=== PATIENT | female | born 1985 | race Caucasian/White ===

== ENCOUNTER 2017-01-13 22:18 | Emergency (ER) | payer MEDICAID ==
[~2017-01-13] VITALS: Ht 172.7 cm; Wt 90.7 kg
[~2017-01-13 22:18] MED LIST: AMOXICILLIN500 M2 PO; ANAPROX DS550 MG PO; ANUSOL-HC25 MG R; BACTRIM DS 8001 TA1 PO; CLARITIN10 MG PO; FLONASE0.05 MG/AC NS; HYDROCODONE BIT1 T11 PO; LIDEX 0.05% CRE15 GM T; MEDROL DOSEPAK4 MG PO; MIRALAX POWDER17 G1 PO; NAPROSYN500 MG PO; NKHM; PONSTEL250 MG PO; PYRIDIUM100 MG PO; ROBITUSSIN AC 110 ML PO; VOLTAREN50 M1 PO
== END 2017-01-14 00:33 | disposition home or self-care (01) ==
LOC: ED 22:18
DX: M25.461 Effusion, right knee (principal)

== ENCOUNTER 2017-02-10 21:32 | Emergency (ER) | payer MEDICAID ==
[~2017-02-10] VITALS: Ht 172.7 cm; Wt 90.7 kg
== END 2017-02-10 22:48 | disposition home or self-care (01) ==
LOC: ED 21:32
DX: J02.9 Acute pharyngitis, unspecified (principal)

== ENCOUNTER 2017-05-14 08:16 | Emergency (ER) | payer OTHER ==
[~2017-05-14] VITALS: Ht 172.7 cm; Wt 88.5 kg
[2017-05-14 08:51] LABS: BILIRUBIN NEGATIVE (NEGATIVE); BLOOD 3+ (NEGATIVE); CLARITY CLOUDY (CLEAR); COLOR YELLOW (YELLOW); GLUCOSE NEGATIVE (NEGATIVE); KETONE NEGATIVE (NEGATIVE); LEUKO ESTERASE 2+ (NEGATIVE); NITRITE POSITIVE (NEGATIVE); PH 5.5 (5.0-9.0); PROTEIN 3+ (NEGATIVE); SPECIFIC GRAVITY 1.025 (1.005-1.030)
[2017-05-14 09:03] LABS: URINE REFLEX COMMENT YES (NO); WBC TNTC wbc/hpf (0-5)
[2017-05-14 09:08] LABS: BASO % 0.3 % (0.0-1.0); EOS # 0.1 10*3/uL (0.0-0.4); EOS % 0.8 % (1.0-4.0); HEMATOCRIT 41.9 % (37.0-47.0); HEMOGLOBIN 14.1 g/dl (12.0-16.0); IG # 0.1 10*3/uL (0.0-0.1); LYMPH # 1.7 10*3/uL (1.3-4.4); LYMPH % 11.8 % (27.0-41.0); MEAN CELL VOLUME 86.4 fl (81.0-99.0); MEAN CORPUSCULAR HGB 29.1 pg (27.0-31.0); MEAN CORPUSCULAR HGB CONC 33.7 g/dl (33.0-37.0); MEAN PLATELET VOLUME 10.5 fl (9.6-12.3); MONO # 0.8 10*3/uL (0.1-1.0); MONO % 5.8 % (3.0-9.0); NEUT # 11.7 10*3/uL (2.3-7.9); PLATELET COUNT AUTOMATED 335 10*3/uL (130-400); RED BLOOD COUNT 4.85 10*6/uL (4.10-5.10); RED CELL DISTRI WIDTH 12.2 % (0-14.5); WHITE BLOOD COUNT 14.4 10*3/uL (4.8-10.8)
[2017-05-14 09:26] LABS: ALBUMIN 3.7 gm/dl (3.1-4.5); ALKALINE PHOSPHATASE 64 U/L (45-117); BILIRUBIN, TOTAL 0.8 mg/dl (0.2-1.0); BUN 12 mg/dl (7-24); C-REACTIVE PROTEIN 1.76 MG/DL (0-0.3); CARBON DIOXIDE 24 mmol/L (21-32); CHLORIDE 106 mmol/L (98-107); EST GLOM FILT AFRICAN AMERICAN > 60 ml/min; GLUCOSE 102 mg/dL (65-99); POTASSIUM 3.8 mmol/L (3.5-5.1); SGOT/AST 18 IU/L (3-35); SGPT/ALT 26 U/L (12-78); SODIUM 139 mmol/L (136-145); TOTAL PROTEIN 8.5 gm/dL (6.4-8.2)
[2017-05-14 09:28] LABS: TROPONIN I < 0.015 ng/ml (<0.045)
[2017-05-14] MEDS ORDERED: IBU800 MG PO (10:24)
== END 2017-05-14 10:45 | disposition home or self-care (01) ==
LOC: ED 08:16
PROVIDERS: Student in an Organized Health Care Education/Training Program
DX: N39.0 Urinary tract infection, site not specified (principal); R31.9 Hematuria, unspecified; M19.071 Primary osteoarthritis, right ankle and foot

== ENCOUNTER 2017-11-23 17:40 | Emergency (ER) | payer SELFPAY ==
[~2017-11-23] VITALS: Ht 172.7 cm; Wt 90.7 kg
[~2017-11-23 17:40] MED LIST changes: +IBU800 MG PO
== END 2017-11-23 18:23 | disposition home or self-care (01) ==
LOC: ED 17:40
DX: G56.02 Carpal tunnel syndrome, left upper limb (principal); G89.29 Other chronic pain; M25.532 Pain in left wrist

== ENCOUNTER 2019-01-29 16:26 | Inpatient (IN) | payer BC ==
[~2019-01-29] VITALS: Ht 172.7 cm; Wt 79.4 kg
--- NOTE | ~2019-01-29 | PR ---
[place], [place] PROGRESS NOTE NAME: CLARENCE NAVAS UNIT #: [id number] ROOM: 426 DOCTOR: NELLA QUINTERO MD BIRTHDATE: [birth year] DOS: 02/04/2019 INPATIENT PROGRESS NOTE SUBJECTIVE: The patient is doing well this morning. Right knee pain is significantly improved. OBJECTIVE: GENERAL: She is awake, alert and oriented to person, place and time. VITAL SIGNS: Stable. Current temperature is 100.2, pulse is 115. EXTREMITIES: I examined both the right and left knees. There is a small effusion in the right knee. Range of motion is from 5 degrees to 105 degrees. This is painless active and passive range of motion within this arc. No erythema. Dressing over the aspiration site is clean and dry. I examined the left knee. She has got about 95 degree range of motion without pain ranging from 5 degrees to 100 degrees. Within this arc of motion, there was no pain with active or passive range of motion. She can do a straight leg raise bilaterally with about 5-degree lag. LABORATORY DATA: I examined the aspiration results of the right knee. There are rare crystals seen consistent with uric acid crystals potentially suggesting crystalline arthropathy. Nucleated cell count in the aspiration is again noted at 5375. This is well below the threshold of infection. Cultures from the knee aspiration showed no bacterial growth to date. 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 She does not have a septic knee on the right, nor the left side. Both knees are moving well this morning as noted above in the physical exam. The right knee, which was the worst knee, aspiration is negative for infection. She may have crystalline arthropathy as noted by the crystalline findings. The patient informs that she is being transferred to [facility] for further management of her systemic illnesses. She has persistent fever. I did let the patient know that today is my last date at [facility]. Followup if needed, will be with Dr. Pretty Caraballo, my Orthopedic Surgery partner. The patient understands. She had the opportunity to ask me questions and understands and agrees with the treatment plan as I have outlined it. [place], [place] PROGRESS NOTE NAME: CLARENCE NAVAS UNIT #: [id number] ROOM: 426 DOCTOR: NELLA QUINTERO MD BIRTHDATE: [birth year] Nella Quintero MD CM:PNTRANS [id number] NELLA QUINTERO MD 02/04/19 1339 interface
--- NOTE | ~2019-01-29 | CON ---
[place], [place] REPORT OF CONSULTATION NAME: CLARENCE NAVAS [facility] #: [id number] UNIT #: [id number] ROOM: 426 DOCTOR: ROSELYN ROSAS MD BIRTHDATE: [birth year] DOS: 01/31/2019 ADDENDUM This is addendum to the consult note done by the nurse practitioner, Jasmin Stone on 01/31/2019. I agreed with the assessment and plan made by the nurse practitioner, Jasmin Stone on 01/31/2019. I reviewed the labs and imaging. We will wait for the pathology results to finalize. Thank you for your consult. Please call for any questions. Roselyn Rosas MD CM:CONSTR:REPORT OF CONSULTATION 1619 02/03/19 2303 interface
--- NOTE | ~2019-01-29 | CON ---
[place], [place] REPORT OF CONSULTATION NAME: CLARENCE NAVAS [facility] #: [id number] UNIT #: [id number] ROOM: 426 DOCTOR: NELLA QUINTERO MD BIRTHDATE: [birth year] DOS: 02/03/2019 INPATIENT CONSULT NOTE CHIEF COMPLAINT: Right knee pain. HISTORY OF PRESENT ILLNESS: This is a pleasant 33-year-old female with right knee pain. She has been admitted to the hospital since 01/29/2019. Orthopedic Surgery was just consulted today, few hours ago. She was admitted to the hospital with multiple complaints including diffuse abdominal pain with diarrhea and an unspecified dental infection. Regarding the right knee, pain has been developing over the last few days. She has had a history of prior effusions in the knee. No history of gout. She has had to have the right knee aspirated in the past before. The patient has had a fever during this admission. She was febrile to 100.6. It is very hard for her to walk due to the right knee pain. Current pain level in the knee is high, about 8-9 on a scale of 1-10 with 10 being the worst. No trauma that she can recall. She does describe some pain in the left knee as well, but it is much less. Pain in the left knee is about a 2-3 on a scale of 1-10 with 10 being the worst. No trauma to the left knee. PAST MEDICAL AND SURGICAL HISTORY: 1. Status post foot surgery. 2. Status post hand surgery. 3. Status post abdominal surgery, unspecified. 4. History of urinary tract infection. 5. Hemorrhoids. 6. Bronchitis. SOCIAL HISTORY: No illicit drug use. No tobacco use. She reports no alcohol use. ALLERGIES TO MEDICINE: None. REVIEW OF SYSTEMS: A 10-point review of systems is conducted and is negative except for pertinent positives listed in the history of present illness. PHYSICAL EXAMINATION: GENERAL: Her general appearance is well. She is oriented to person, place, and time. Mood euthymic. Affect appropriate. VITAL SIGNS: The patient has had fevers during this admission including 103 degrees Fahrenheit on 01/29, 102 degrees on 01/29. Current temperature is 98.6 this morning at 8:00 a.m. Pulse is 106. Blood pressure is 100/67. EXTREMITIES: I examined the right leg. All compartments in the thigh and lower legs are soft. Skin is intact about the right hip, right knee, right ankle. She has got a very large effusion in the right knee. Knee is warm to touch. She has got a lot of pain with active and passive range of motion of the knee. She can do a straight leg raise, but she has got lots of pain and the effusion gives her least a 10-degree lag. I examined the right ankle. 5/5 strength with resisted ankle dorsiflexion and [place], [place] REPORT OF CONSULTATION NAME: CLARENCE NAVAS UNIT #: [id number] ROOM: 426 DOCTOR: NELLA QUINTERO MD BIRTHDATE: [birth year] plantar flexion. I examined the left knee. She has got a small effusion in the left knee. She has got 100-degree arc range of motion in the left knee without pain. She has got some mild medial joint line tenderness on the left knee. She can do a straight leg raise on the left side with about a 3-degree lag. LABORATORY DATA: White count is 9.9. H and H is 8 and 27. Platelets 356. ESR is 97. C-reactive protein is 24.5. INR is 1.2. IMAGING: I reviewed x-rays of the right knee from 02/02 which show no acute fracture, but a moderate joint effusion. IMPRESSION: A 33-year-old female, right knee pain with concern for septic right knee joint. In the clinical setting of infection, which in her case included dental infection and possible other infection, and with fevers, and with elevated sed rate and CRP, and with a lot of pain in the right knee, and with a lot of pain with any motion of the right knee, and with inability to weightbear due to pain in the right knee, my chief concern is septic right knee joint. I explained to the patient that this means that she may have an infection in the right knee joint. The only way to be sure is to aspirate the right knee and send the fluid to the lab for cell count, with differential, Gram stain, aerobic and anaerobic culture, and crystals. There are risks with aspiration, which include worsening of the infection, reaccumulation of fluid, and need for knee surgery. She did sign consent for right knee aspiration at the bedside. A verbal time-out was performed confirming that this is the correct patient and that the right knee is the correct side. I then proceeded under sterile conditions via superolateral approach in sterile fashion and drained 90 mL of yellow cloudy fluid from the right knee. A sterile dressing was then applied. She tolerated the procedure well with no immediate complications. Labs sent to the fluid for stat cell count with differential, crystals, Gram stain, aerobic and anaerobic culture. The patient is aware that she might need surgery on the right knee. This would be irrigation and debridement of the right knee joint if the labs are worrisome for an infection. Potentially, the function of her knee may be compromised permanently. She may have permanent disability or permanent dysfunction from this. She may need multiple surgeries on the right knee including possible early total knee arthroplasty. She is aware of. I also informed her that I am here on a temporary basis helping Dr. Pretty Caraballo, who is the permanent orthopedic surgeon here in [place]. My last [place], [place] REPORT OF CONSULTATION NAME: CLARENCE NAVAS UNIT #: [id number] ROOM: 426 DOCTOR: NELLA QUINTERO MD BIRTHDATE: [birth year] date is tomorrow, 02/04, and I made sure the patient is aware of that. She had the opportunity to ask me questions and she understands and agrees with treatment plan as I have outlined it. At this point, we are awaiting the laboratory results to guide our decision making whether we did go to the operating room or not for a septic knee. Nella Quintero MD CM:CONSTR:REPORT OF CONSULTATION 1234 02/03/19 1415 interface
--- NOTE | ~2019-01-29 | EKG ---
[place], [place] ELECTROCARDIOGRAM REPORT NAME: CLARENCE NAVAS UNIT #: [id number] ROOM: 426 DOCTOR: NELL DRAFT REPORT BIRTHDATE: [birth year] [facility] Test Date: 2019-01-29 Test Time: 17:06:59 Pat Name: CLARENCE NAVAS Department: Room: 426 Gender: F Geospatial Information Technologist: Nan Rosas : 1985 Requested By: MORGAN GARCIA DNP Order Number: [id number] [place] MD: Dany Stewart Measurements Intervals [place] Rate: 131 P: 55 [place]: 133 QRS: 91 QRSD: 85 T: -26 QT: 268 QTc: 396 Interpretive Statements Sinus tachycardia Borderline right axis deviation Borderline T abnormalities, diffuse leads No previous ECG available for comparison Electronically Signed On 01-30-2019 11:06:36 PDT by Dany Stewart CM:EKGRPT:ELECTROCARDIOGRAM REPORT [id number] MORGAN CAMEJO DRAFT REPORT MORGAN GARCIA DNP
--- NOTE | ~2019-01-29 | PR ---
[place], [place] PROGRESS NOTE NAME: CLARENCE NAVAS UNIT #: [id number] ROOM: 426 DOCTOR: NELLA QUINTERO MD BIRTHDATE: [birth year] DOS: 02/03/2019 This documents a conversation with the patient regarding her fluid results from the aspiration. The nucleated cell count is 5375 with 79% neutrophils, 13% lymphocytes, 8% monocytes. Gram stain shows moderate white blood cells and no organisms. Crystals are pending. Cultures are of course pending. With this laboratory result, I do not recommend any surgical irrigation and debridement at this time. The threshold for an infection is 50,000 nucleated cells. Her nucleated cell count is 5375, so this is almost 10 x below the threshold for infection. Therefore, infection in the knee joint is very unlikely. Cultures of the right knee synovial fluid should be followed. Should they turn positive, then a surgical irrigation and debridement of the right knee would be indicated. My last day at [facility] is 02/04/2019. Dr. Pretty Caraballo will be able to follow this patient after my departure including office followup after discharge from this hospital visit. The patient had the opportunity to ask any questions and understands and agrees with plan as I have outlined it. Nella Quintero MD CM:PNTRANS [id number] NELLA QUINTERO MD 02/03/19 1640 interface
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
--- NOTE | ~2019-01-29 | ED ---
[place], [place] EMERGENCY DEPARTMENT REPORT NAME: CLARENCE NAVAS UNIT #: [id number] PT STATUS: DIS IN DOCTOR: PIA ALMENDAREZ,[facility] ROOM #: 426 DOS: 01/30/2019 HISTORY OF PRESENT ILLNESS: The patient has presented ____ with nausea, vomiting, abdominal pain, cramp, diarrhea, quite distressed. Stool studies including clostridium difficile has been negative. Ova and parasite has been negative. CBC differential, white blood cells 17, H and H of 10 and 31. HIV rapid antibodies were negative. CT scan of the abdomen and colon was done. Diffuse colitis, suspected. Monospot positive. PAST MEDICAL HISTORY: Associated with chronic pain, dermatitis, constipation, sinusitis, osteoarthritis, urinary tract infections, and hemorrhoids. PAST SURGICAL HISTORY: Abdominal surgery, details unknown. Podiatric surgery. SOCIAL HISTORY: Nonsmoker, nonalcohol consumer by history. FAMILY HISTORY: Noncontributory. ALLERGIES: No known medication. REVIEW OF SYSTEMS: HEENT: Denies double vision, blurred vision. RESPIRATORY: Admits some shortness of breath. CARDIOVASCULAR: Denies chest pain. DIGESTIVE SYSTEM: Nausea, vomiting, diarrhea, and abdominal pain. PHYSICAL EXAMINATION: VITAL SIGNS: Stable. HEENT: Mouth thrush. NECK: Supple, no thyromegaly. CHEST: Symmetric anatomy, equal expansion. No wheeze, no rhonchi. HEART: Normal sinus rhythm, no gallop, no murmur. ABDOMEN: Soft. No hepato-organomegaly. Bowel sounds present. EXTREMITIES: No cyanosis, no pedal edema. NEUROLOGIC: Alert. IMPRESSION: Thrush in the mouth. Monospot positivity, diarrhea, ruling out all variety of viruses enteric. Stool studies needed since ova and parasite negative and since clostridium difficile negative. PLAN AND DISCUSSION: We are going to also proceed with endoscopic evaluation. Upper and lower tract. Labs reviewed, records reviewed. Monospot positivity noticed. Workup in progress. CT scan of the abdomen seen. Colitis report has been noticed. [place], [place] EMERGENCY DEPARTMENT REPORT NAME: CLARENCE NAVAS UNIT #: [id number] PT STATUS: DIS IN DOCTOR: PIA ALMENDAREZ,[facility] ROOM #: 426 LORENA PALACIO MD CM:CHUT:EMERGENCY DEPARTMENT REPORT [id number]
--- NOTE | ~2019-01-29 | O ---
[place], [place] OPERATIVE NOTE NAME: CLARENCE NAVAS UNIT #: [id number] ROOM: 426 DOCTOR: LORENA PALACIO MD BIRTHDATE: [birth year] DOS: 01/30/2019 INDICATION FOR PROCEDURE: The patient has presented with chief complaint of nausea, diarrhea, vomiting, abdominal pain, and colitis. PROCEDURE: Today's procedure part of investigation is panendoscopy and colonoscopy. PREMEDICATION: Propofol. SCOPE: Olympus forward-viewing gastroscope Q10 video. REPORT: After putting the patient in left lateral position and application of lubricant to the scope, the scope was introduced. Thereafter, under direct visualization, advanced through the length of esophagus without difficulty. Gastric pouch was entered. Gastritis seen. Biopsies from antrum was obtained. Duodenal bulb, second and third part within normal limits. The patient extubated, tolerated the procedure well. IMPRESSION: Gastritis and hiatal hernia. PLAN AND DISCUSSION: I am going to organize and colonoscopy today. PROCEDURE #2 INDICATION FOR PROCEDURE: The patient has presented with diarrhea. CT scan with colitis. PROCEDURE: Today's procedure part of investigation is colonoscopy plus biopsies. PREMEDICATION: Propofol. SCOPE: Olympus forward-viewing colonoscope 10L video. REPORT: After putting the patient in left lateral position and application of lubricant to the scope, the scope was introduced under direct visualization, advanced through the length of colon without difficulty. IMPRESSION AND PLAN: Numerous deeply punctate ulceration particularly as we approached toward the cecum populating colon. Biopsies from margin of them was obtained. Photographic series of very deeply punctate ulcers were obtained. Concern was that these could be viral in origin. The patient extubated and tolerated the procedure well. IMPRESSION: Numerous punctate colonic ulcers, rule out viruses as etiology. PLAN AND DECISION: We have spoken to the pathologist for awareness of the evaluation of the tissue not only in formalin, also for viral studies. Other discussion, the patient needs to be addressed for thrush in her mouth with [place], [place] OPERATIVE NOTE NAME: CLARENCE NAVAS UNIT #: [id number] ROOM: 426 DOCTOR: LORENA PALACIO MD BIRTHDATE: [birth year] perhaps nystatin 5 mL swish and swallow and clinical reassessment. LORENA PALACIO MD CM:CHESTER:OPERATIVE NOTE [id number] LORENA PALACIO MD 01/31/19 0648 interface
--- NOTE | ~2019-01-29 | CON ---
[place], [place] REPORT OF CONSULTATION NAME: CLARENCE NAVAS UNIT #: [id number] ROOM: 426 DOCTOR: LORENA PALACIO MD BIRTHDATE: [birth year] DOS: 01/30/2019 HISTORY OF PRESENT ILLNESS: The patient has presented with nausea, vomiting, abdominal pain, cramp, diarrhea, quite distressed. Stool studies including clostridium difficile has been negative. Ova and parasite has been negative. CBC differential, white blood cells 17, H and H of 10 and 31. HIV rapid antibodies were negative. CT scan of the abdomen and colon was done. Diffuse colitis, suspected. Monospot positive. PAST MEDICAL HISTORY: Associated with chronic pain, dermatitis, constipation, sinusitis, osteoarthritis, urinary tract infections, and hemorrhoids. PAST SURGICAL HISTORY: Abdominal surgery, details unknown. Podiatric surgery. SOCIAL HISTORY: Nonsmoker, nonalcohol consumer by history. FAMILY HISTORY: Noncontributory. ALLERGIES: No known medication. REVIEW OF SYSTEMS: HEENT: Denies double vision, blurred vision. RESPIRATORY: Admits some shortness of breath. CARDIOVASCULAR: Denies chest pain. DIGESTIVE SYSTEM: Nausea, vomiting, diarrhea, and abdominal pain. PHYSICAL EXAMINATION: VITAL SIGNS: Stable. HEENT: Mouth thrush. NECK: Supple, no thyromegaly. CHEST: Symmetric anatomy, equal expansion. No wheeze, no rhonchi. HEART: Normal sinus rhythm, no gallop, no murmur. ABDOMEN: Soft. No hepato-organomegaly. Bowel sounds present. EXTREMITIES: No cyanosis, no pedal edema. NEUROLOGIC: Alert. IMPRESSION: Thrush in the mouth. Monospot positivity, diarrhea, ruling out all variety of viruses enteric. Stool studies needed since ova and parasite negative and since clostridium difficile negative. PLAN AND DISCUSSION: We are going to also proceed with endoscopic evaluation. Upper and lower tract. Labs reviewed, records reviewed. Monospot positivity noticed. Workup in progress. CT scan of the abdomen seen. Colitis report has been noticed. [place], [place] REPORT OF CONSULTATION NAME: CLARENCE NAVAS UNIT #: [id number] ROOM: 426 DOCTOR: LORENA PALACIO MD BIRTHDATE: [birth year] LORENA PALACIO MD CM:CONSTR:REPORT OF CONSULTATION 1708 02/18/19 0816 interface
[2019-01-29 16:31] VITALS: BP 109/71
[2019-01-29 17:10] LABS: BASO % 0.3 % (0.0-1.0); EOS # 0.1 10*3/uL (0.0-0.4); EOS % 0.6 % (1.0-4.0); HEMATOCRIT 32.7 % (37.0-47.0); HEMOGLOBIN 10.7 g/dl (12.0-16.0); LYMPH # 1.3 10*3/uL (1.3-4.4); LYMPH % 8.6 % (27.0-41.0); MEAN CELL VOLUME 84.3 fl (81.0-99.0); MEAN CORPUSCULAR HGB 27.6 pg (27.0-31.0); MEAN CORPUSCULAR HGB CONC 32.7 g/dl (33.0-37.0); MEAN PLATELET VOLUME 10.6 fl (9.6-12.3); MONO % 7.1 % (3.0-9.0); NEUT # 12.1 10*3/uL (2.3-7.9); NEUT % 82.2 % (47.0-73.0); PLATELET COUNT AUTOMATED 390 10*3/uL (130-400); RED BLOOD COUNT 3.88 10*6/uL (4.10-5.10); RED CELL DISTRI WIDTH 12.7 % (0-14.5); WHITE BLOOD COUNT 14.7 10*3/uL (4.8-10.8)
[2019-01-29 17:19] LABS: ACT PARTIAL THROMBO TIME 23.6 SECONDS (20.8-31.5); INTERNATIONAL NORM RATIO 1.2 (2.0-3.5)
[2019-01-29 17:28] LABS: ALBUMIN 2.3 gm/dl (3.1-4.5); ALKALINE PHOSPHATASE 72 U/L (45-117); BUN 4 mg/dl (7-24); CHLORIDE 99 mmol/L (98-107); CREATININE 0.75 mg/dL (0.55-1.02); LIPASE 73 U/L (73-393); POTASSIUM 3.2 mmol/L (3.5-5.1); SGOT/AST 20 IU/L (3-35); SGPT/ALT 22 U/L (12-78); SODIUM 134 mmol/L (136-145); TOTAL PROTEIN 7.8 gm/dL (6.4-8.2)
[2019-01-29 17:30] LABS: BETA-HCG, QUANT < 1.0 mIU/mL (1-3); TROPONIN I < 0.015 ng/ml (<0.045)
[2019-01-29 18:00] VITALS: BP 105/62
--- NOTE | 2019-01-29 20:00 | NUR ---
PATIENT AMBULATED TO THE BATHROOM AT THIS TIME WITH SIGNIFICANT OTHER AT HER SIDE. GAIT STEADY. RESPIRATIONS EASY, NON-LABORED ON ROOM AIR. NO DISTRESS NOTED. RN WILL CONTINUE TO MONITOR.
--- NOTE | 2019-01-29 20:15 | NUR ---
PER PATIENT HAD A BLOODY BOWEL MOVEMENT WHEN UP TO THE RESTROOM.
[2019-01-29 20:28] VITALS: BP 95/66
--- NOTE | 2019-01-29 20:54 | NUR ---
PATIENT REFUSING TO GET INTO GOWN AT THIS TIME.
[2019-01-29 21:00] VITALS: BP 89/51
--- NOTE | 2019-01-29 21:00 | NUR ---
A 33, admitted to , under the services of AMANDA Tavarez DO with a diagnosis of COLITIS, SEPSIS, ABD PAIN, UTI, CARPAL TUNNEL SYNDROME. Chief complaint is GASTROENTERITIS. Patient arrived via ambulatory from ER. Monitor applied. Initial assessment completed. Vital signs taken and recorded. AMANDA TAVAREZ DO notified of admission to the unit. Orders received. See assessment for past medical history, medications and allergies. Patient and/or family oriented to unit. [facility] visitation policy reviewed. Clothing/patient valuable form completed. SHUKRI SAXENA
--- NOTE | 2019-01-29 22:20 | NUR ---
INFECTIOUS DISEASE ANSWERING SERVICE AWARE OF CONSULT.
--- NOTE | 2019-01-29 22:21 | NUR ---
PATIENT REFUSING PICTURES, MEASUREMENTS, AND TREATMENT OF BUTTOCKS WOUNDS.
--- NOTE | 2019-01-29 22:21 | NUR ---
DR CHANDRA AWARE OF PATIENT HAVING NO HOME MEDICATIONS.
--- NOTE | 2019-01-29 22:42 | NUR ---
PATIENT EXPLAINED REASONING BEHIND HIV SCREEN. GIVEN INFORMATION SHEET, CONSENT SIGNED. PLACED IN CHART. SCHEDULED TO BE DRAWN WITH 0530 LABS.
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
[2019-01-29 23:53] LABS: MICROCYTOSIS SLIGHT; PLATELET SUFFICIENCY NORMAL (NORMAL); POLYCHROMASIA SLIGHT; TOTAL CELLS COUNTED 100 #CELLS
[2019-01-30] VITALS: BP 105/70
--- NOTE | 2019-01-30 00:11 | NUR ---
PATIENT RECEIVED MORPHINE FOR ABDOMINAL PAIN RATED 8/10.
[2019-01-30 00:45] LABS: BASO # 0.1 10*3/uL (0.0-0.1); BASO % 0.3 % (0.0-1.0); EOS # 0.1 10*3/uL (0.0-0.4); EOS % 0.7 % (1.0-4.0); HEMATOCRIT 29.6 % (37.0-47.0); HEMOGLOBIN 9.4 g/dl (12.0-16.0); LYMPH % 6.6 % (27.0-41.0); MEAN CELL VOLUME 85.8 fl (81.0-99.0); MEAN CORPUSCULAR HGB 27.2 pg (27.0-31.0); MEAN CORPUSCULAR HGB CONC 31.8 g/dl (33.0-37.0); MEAN PLATELET VOLUME 10.6 fl (9.6-12.3); MONO # 1.2 10*3/uL (0.1-1.0); MONO % 8.1 % (3.0-9.0); NEUT # 12.3 10*3/uL (2.3-7.9); NEUT % 83.4 % (47.0-73.0); PLATELET COUNT AUTOMATED 326 10*3/uL (130-400); RED BLOOD COUNT 3.45 10*6/uL (4.10-5.10); RED CELL DISTRI WIDTH 12.8 % (0-14.5); WHITE BLOOD COUNT 14.8 10*3/uL (4.8-10.8)
--- NOTE | 2019-01-30 01:00 | NUR ---
PATIENT STATES MORPHINE WAS EFFECTIVE TO HELP WITH ABDOMINAL PAIN.
--- NOTE | 2019-01-30 06:06 | NUR ---
PATIENT RECEIVED TYLENOL FOR FEVER AND MORPHINE FOR ABDOMINAL PAIN RATED 8/10. PATIENT ALSO HAD ANOTHER BLOODY DIARRHEA EPISODE.
[2019-01-30 06:40] LABS: BASO % 0.2 % (0.0-1.0); EOS % 0.3 % (1.0-4.0); HEMATOCRIT 28.2 % (37.0-47.0); LYMPH # 1.3 10*3/uL (1.3-4.4); LYMPH % 9.1 % (27.0-41.0); MEAN CELL VOLUME 84.4 fl (81.0-99.0); MEAN CORPUSCULAR HGB 26.9 pg (27.0-31.0); MEAN CORPUSCULAR HGB CONC 31.9 g/dl (33.0-37.0); MEAN PLATELET VOLUME 10.6 fl (9.6-12.3); MONO # 1.2 10*3/uL (0.1-1.0); MONO % 8.6 % (3.0-9.0); NEUT # 11.4 10*3/uL (2.3-7.9); NEUT % 80.8 % (47.0-73.0); PLATELET COUNT AUTOMATED 318 10*3/uL (130-400); RED BLOOD COUNT 3.34 10*6/uL (4.10-5.10); RED CELL DISTRI WIDTH 12.8 % (0-14.5); RETICULOCYTE % 1.37 % (0.50-2.50); WHITE BLOOD COUNT 14.1 10*3/uL (4.8-10.8)
--- NOTE | 2019-01-30 06:48 | NUR ---
CALLED DR PERALES TO MAKE HIM AWARE THAT THE PATIENT HAD EXPERIENCED ANOTHER WATERY, BLOODY DIARRHEA EPISODE. SUGGESTED A POSSIBLE JAHDI CONSULT, BUT DR PERALES FEELS THAT INFECTIOUS DISEASE IS ENOUGH AT THIS POINT IN TIME. [facility]WEST RESULTED LABS REPORTED TO DR PERALES AT THIS TIME. PATIENT IS STATING THAT MORPHINE WAS EFFECTIVE FOR HER ABDOMINAL PAIN, SITTING UP IN BED, NO S/S OF DISTRESS. CALL LIGHT WITHIN REACH.
[2019-01-30 07:01] LABS: BUN 3 mg/dl (7-24); CHLORIDE 106 mmol/L (98-107); CREATININE 0.62 mg/dL (0.55-1.02); IRON 11 ug/dL (50-170); PHOSPHOROUS 1.7 mg/dL (2.5-4.9); POTASSIUM 3.2 mmol/L (3.5-5.1); SODIUM 136 mmol/L (136-145); TOTAL IRON BINDING CAPACITY 128 ug/dl (250-450)
--- NOTE | 2019-01-30 08:06 | NUR ---
TOOK OVER CARE OF PT, IN TO SEE PT, MED STUDENT ASSESSING PT AT THIS TIME. PT C/O PAIN TO ABDOMEN AND MOUTH DUE TO THRUSH. RESPIRATIONS EASY AND UNLABORED ON ROOM AIR. PT GRIMACING. WILL MEDICATE PT. HOB ELEVATED, ALL SAFETY MEASURES IN PLACE. CALL LIGHT IN REACH.
[2019-01-30 08:11] LABS: BILIRUBIN NEGATIVE (NEGATIVE); BLOOD 3+ (NEGATIVE); CLARITY SL CLOUDY (CLEAR); COLOR YELLOW (YELLOW); GLUCOSE NEGATIVE (NEGATIVE); KETONE TRACE (NEGATIVE); LEUKO ESTERASE 1+ (NEGATIVE); NITRITE NEGATIVE (NEGATIVE); UROBILINOGEN 0.2 E.U./dl (0.2-1.0)
--- NOTE | 2019-01-30 08:40 | NUR ---
CLARENCE NAVAS [id number] Please refer to the physician's history and physical for past medical history, comorbid conditions, and allergies. Diagnosis: UTI CARPAL TUNNEL SYNDROME COLITIS FLANK PAIN Charly Score: 17,AT RISK WOUND DESCRIPTIONS: Location of the wound: right lateral aspect of buttock proximal Thickness: Full Size: 0.3cm x 0.5cm x 0.1cm Tunneling: none Undermining: none Sinus Tract: none Presence of Exudate: Serosanguineous Amount: Light Color: Yellow, red Odor: Medium Periwound Skin Appearance: Normal Wound edges: approximated Pain (associated with wound): tender to touch How does patient state this happened? pt stated she has been having diarrhea and bleeding for about 2 weeks now Location of the wound: right lateral aspect of buttock medial Thickness: Partial Size: 0.2cm x 0.2cm x 0.1cm Tunneling: none Undermining: none Sinus Tract: none Presence of Exudate: Serosanguineous Amount: Light Color: red Odor: Medium Periwound Skin Appearance: Normal Wound edges: approximated Pain (associated with wound): tender to touch How does patient state this happened? pt stated she has been having diarrhea and bleeding for about 2 weeks now Location of the wound: right lateral aspect of buttock distal Thickness: Full Size: 0.7cm x 1.7cm x 0.1cm Tunneling: none Undermining: none Sinus Tract: none Presence of Exudate: Serosanguineous Amount: Light Color: red, yellow Odor: Medium Periwound Skin Appearance: Normal Wound edges: approximated Pain (associated with wound): tender to touch How does patient state this happened? pt stated she has been having diarrhea and bleeding for about 2 weeks now Location of the wound: right medial aspect of buttock Thickness: Full Size: 0.5cm x 1.5cm x 0.1cm Tunneling: none Undermining: none Sinus Tract: none Presence of Exudate: Serosanguineous Amount: Light Color: red, yellow, brown Odor: Medium Periwound Skin Appearance: Normal Wound edges: approximated Pain (associated with wound): tender to touch How does patient state this happened? pt stated she has been having diarrhea and bleeding for about 2 weeks now Location of the wound: left medial aspect of buttock distal Thickness: Full Size: 0.6cm x 0.6cm x 0.2cm Tunneling: none Undermining: none Sinus Tract: none Presence of Exudate: Serosanguineous Amount: Light Color: red, yellow, brown Odor: Medium Periwound Skin Appearance: Normal Wound edges: approximated Pain (associated with wound): tender to touch How does patient state this happened? pt stated she has been having diarrhea and bleeding for about 2 weeks now Location of the wound: left medial aspect of buttock medial above distal Thickness: Partial Size: 0.2cm x 0.3cm x 0.1cm Tunneling: none Undermining: none Sinus Tract: none Presence of Exudate: Serosanguineous Amount: Light Color: red Odor: Medium Periwound Skin Appearance: Normal Wound edges: approximated Pain (associated with wound): tender to touch How does patient state this happened? pt stated she has been having diarrhea and bleeding for about 2 weeks now Location of the wound: left medial aspect of buttock medial above medial Thickness: Partial Size: 0.2cm x 0.4cm x 0.1cm Tunneling: none Undermining: none Sinus Tract: none Presence of Exudate: Serosanguineous Amount: Light Color: red Odor: Medium Periwound Skin Appearance: Normal Wound edges: approximated Pain (associated with wound): tender to touch How does patient state this happened? pt stated she has been having diarrhea and bleeding for about 2 weeks now Location of the wound: left medial aspect of buttock proximal above medial Thickness: Partial Size: 0.2cm x 0.2cm x 0.1cm Tunneling: none Undermining: none Sinus Tract: none Presence of Exudate: Serosanguineous Amount: Light Color: red Odor: Medium Periwound Skin Appearance: Normal Wound edges: approximated Pain (associated with wound): tender to touch How does patient state this happened? pt stated she has been having diarrhea and bleeding for about 2 weeks now Location of the wound: left lateral aspect of buttock Thickness: Full Size: 0.5cm x 0.5cm x 0.1cm Tunneling: none Undermining: none Sinus Tract: none Presence of Exudate: Serosanguineous Amount: Light Color: red, yellow Odor: Medium Periwound Skin Appearance: Normal Wound edges: approximated Pain (associated with wound): tender to touch How does patient state this happened? pt stated she has been having diarrhea and bleeding for about 2 weeks now Location of the wound: distal aspect of coccyx Thickness: Full Size: 0.6cm x 0.4cm x 0.2cm Tunneling: none Undermining: none Sinus Tract: none Presence of Exudate: Serosanguineous Amount: Light Color: red, yellow Odor: Medium Periwound Skin Appearance: Normal Wound edges: approximated Pain (associated with wound): tender to touch How does patient state this happened? pt stated she has been having diarrhea and bleeding for about 2 weeks now Location of the wound: medial aspect of coccyx Thickness: Full Size: 0.4cm x 0.2cm x 0.2cm Tunneling: none Undermining: none Sinus Tract: none Presence of Exudate: Serosanguineous Amount: Light Color: red, yellow Odor: Medium Periwound Skin Appearance: Normal Wound edges: approximated Pain (associated with wound): tender to touch How does patient state this happened? pt stated she has been having diarrhea and bleeding for about 2 weeks now Location of the wound: proximal aspect of coccyx Thickness: Partial Size: 0.3cm x 0.2cm x 0.1cm Tunneling: none Undermining: none Sinus Tract: none Presence of Exudate: Serosanguineous Amount: Light Color: red, Odor: Medium Periwound Skin Appearance: Normal Wound edges: approximated Pain (associated with wound): tender to touch How does patient state this happened? pt stated she has been having diarrhea and bleeding for about 2 weeks now Surface the patient is resting on: Isoflex SKIN PREVENTION RECOMMENDATION: 1. Pressure redistribution support surface as appropriate 2. Elevate heels 3. Remove boots/TEDS every shift and reapply 4. Head of bed 30 degrees as tolerated 5. Assess nutrition and hydration 6. Manage moisture 7. Avoid the use of containment devices while in bed 8. Use absorptive products on surfaces limit layers of linens on bed 9. Turn and reposition every 1-2 hours in bed and every 1 hour in chair as tolerated 10. Weight shifts every 15 minutes while up in chair 11. Offloading with pillows or device to keep heels elevated off bed 12. Monitor skin at least every shift 13. Inspect under medical devices twice a day WOUND TREATMENT RECOMMENDATIONS: Wheelchair cushion when oob. Partial and Full thickness guidelines: Cleanse all areas to left buttock, right buttock, and coccyx with nss and apply sureprep around the wound therahoney to wound bed and cover with dsd daily and prn for soiling. Keep intact with mesh undergarments. Consult surgery for possible debridement of full thickness areas located to left buttocks, right buttocks, and coccyx.
--- NOTE | 2019-01-30 09:00 | NUR ---
Edging Catcher in to talk to patient. Patient states lives at home with . There are no steps in the home. Physician: none [facility]acy: [facility] health services: none Patient's level of ADLs: MINIMAL ASSIST Patient has working utilities: all working DME: none Follow-up physician's appointment after d/c: will be made by hospitalist nurse director upon discharge Does patient want to access PORTAL?: no Discharge plan discussed with patient, patient lives at home with , she states she sometimes doesn't get around very well, no cane or walker, discussed with her a discharge plan and she stated she would be going home, also discussed her not being able to get around well at time, discussed with her needing a walker or cane and patient declined any equipement at this time, case management will follow. MINOO MCCOY
--- NOTE | 2019-01-30 09:24 | NUR ---
Dr. Kinsey notified of wound care recommendations.
[2019-01-30 09:37] LABS: FERRITIN 544.8 ng/mL (10.0-291.0)
[2019-01-30 09:54] LABS: BACTERIA 3+
[2019-01-30 09:55] LABS: RBC 31-40 rbc/hpf (0-2); WBC TNTC wbc/hpf (0-5)
--- NOTE | 2019-01-30 11:16 | NUR ---
CONSULT CALLED TO DR PALACIO, NEW ORDERS RECEIVED FOR TAP WATER ENEMA AT NOON, EGD/COLO TODAY, AND NPO NOW.
[2019-01-30 12:00] VITALS: BP 103/58
[2019-01-30 14:11] LABS: HEMATOCRIT 31.7 % (37.0-47.0); HEMOGLOBIN 10.1 g/dl (12.0-16.0); MEAN CELL VOLUME 83.6 fl (81.0-99.0); MEAN CORPUSCULAR HGB 26.6 pg (27.0-31.0); MEAN CORPUSCULAR HGB CONC 31.9 g/dl (33.0-37.0); MEAN PLATELET VOLUME 10.9 fl (9.6-12.3); PLATELET COUNT AUTOMATED 327 10*3/uL (130-400); RED BLOOD COUNT 3.79 10*6/uL (4.10-5.10); RED CELL DISTRI WIDTH 12.9 % (0-14.5); WHITE BLOOD COUNT 17.5 10*3/uL (4.8-10.8)
[2019-01-30 14:35] LABS: BASOPHILS 1 % (0-1); BURR CELLS FEW; PLATELET SUFFICIENCY NORMAL (NORMAL); TOTAL CELLS COUNTED 100 #CELLS
[2019-01-30 17:30] VITALS: BP 115/73
--- NOTE | 2019-01-30 18:14 | NUR ---
PT GIVEN TYLENOL 650 MG PO AT THIS TIME FOR FEVER OF 102. WILL MONITOR FOR EFFECTIVENESS. CALL LIGHT IN REACH.
--- NOTE | 2019-01-30 18:55 | NUR ---
PT REFUSING WOUND CARE TO BUTTOCKS AT THIS TIME.
[2019-01-30 20:00] VITALS: BP 112/63
[2019-01-31] VITALS: BP 107/70
--- NOTE | 2019-01-31 05:58 | NUR ---
PATIENT COMPLAINING OF ORAL PAIN CAUSED BY THE ORAL THRUSH. CALLED DR PERALES TO REQUEST ORAL LIDOCAINE. NEW ORDER RECEIVED ONE TIME. LIDOCAINE GIVEN TO PATIENT.
[2019-01-31 06:14] LABS: BASO % 0.3 % (0.0-1.0); EOS # 0.1 10*3/uL (0.0-0.4); HEMATOCRIT 25.4 % (37.0-47.0); LYMPH # 1.1 10*3/uL (1.3-4.4); MEAN CELL VOLUME 84.9 fl (81.0-99.0); MEAN CORPUSCULAR HGB 26.8 pg (27.0-31.0); MEAN CORPUSCULAR HGB CONC 31.5 g/dl (33.0-37.0); MEAN PLATELET VOLUME 10.7 fl (9.6-12.3); MONO % 8.5 % (3.0-9.0); NEUT # 9.6 10*3/uL (2.3-7.9); NEUT % 80.4 % (47.0-73.0); PLATELET COUNT AUTOMATED 286 10*3/uL (130-400); RED BLOOD COUNT 2.99 10*6/uL (4.10-5.10); RED CELL DISTRI WIDTH 13.2 % (0-14.5); WHITE BLOOD COUNT 11.9 10*3/uL (4.8-10.8)
[2019-01-31 06:23] LABS: BUN 2 mg/dl (7-24); CHLORIDE 106 mmol/L (98-107); POTASSIUM 3.4 mmol/L (3.5-5.1); SODIUM 138 mmol/L (136-145)
[2019-01-31 08:00] VITALS: BP 112/80; BP 136/66
[2019-01-31 12:00] VITALS: BP 111/72
--- NOTE | 2019-01-31 13:20 | NUR ---
PATIENT REQUESTING TO TAKE A SHOWER- SPOKE WITH DR ALFORD, PATIENT TO TAKE BED BATH AT THIS TIME.
--- NOTE | 2019-01-31 13:50 | NUR ---
PATIENT REQUESTING PAIN MEDICATION FOR ABDOMINAL PAIN RATED 7/10 ON 0/10 SCALE AT THIS TIME. MORPHINE ADMINISTERED PRESCRIBED. WILL MONITOR FOR EFFECTIVENESS.
--- NOTE | 2019-01-31 14:50 | NUR ---
PATIENT STATES THAT ABDOMINAL PAIN 4/10 AFTER ADMINISTRATION OF MORPHINE. WILL CONTINUE TO MONITOR.
[2019-01-31 16:00] VITALS: BP 102/66
--- NOTE | 2019-01-31 17:58 | NUR ---
RECEIVED CALL FROM BARREL MAKER, PT HR 148. PT UP USING BSC. ASKING FOR PAIN MEDICATION.
--- NOTE | 2019-01-31 18:12 | NUR ---
PATIENT REQUESTING PAIN MEDICATION FOR ABDOMINAL PAIN RATED 8/10 ON 0/10 SCALE. MORPHINE ADMINISTERED PRESCRIBED. WILL MONITOR FOR EFFECTIVENESS.
--- NOTE | 2019-01-31 19:12 | NUR ---
PATIENT STATES THAT MORPHINE HELPED ABDOMINAL PAIN, RATES IT 5/10 AT THIS TIME. WILL CONTINUE TO MONITOR.
[2019-01-31 20:00] VITALS: BP 93/59
[2019-02-01] VITALS: BP 102/67
--- NOTE | 2019-02-01 00:23 | NUR ---
REFUSING WOUND CARE DRESSINGS AT THIS TIME.
--- NOTE | 2019-02-01 00:52 | NUR ---
PATIENT RECEIVED TYLENOL FOR TEMP OF 102.
--- NOTE | 2019-02-01 02:09 | NUR ---
PATIENT RECEIVED MORPHINE FOR PAIN IN KNEES AND ABDOMEN. RATES PAIN 9/10 WITH MOVEMENT.
--- NOTE | 2019-02-01 03:00 | NUR ---
24 HR chart check completed.
--- NOTE | 2019-02-01 05:08 | NUR ---
PATIENT ALLOWED THIS NURSE TO PLACE THE DRESSINGS ON BUTTOCKS WOUNDS PER DR ORDER. ALSO WASHED AND COMBED PATIENT'S HAIR TO REMOVE KNOTS AND ENCOURAGED SELF-CARE.
[2019-02-01 06:49] LABS: HEMATOCRIT 27.1 % (37.0-47.0); HEMOGLOBIN 8.5 g/dl (12.0-16.0); MEAN CELL VOLUME 85.2 fl (81.0-99.0); MEAN CORPUSCULAR HGB 26.7 pg (27.0-31.0); MEAN CORPUSCULAR HGB CONC 31.4 g/dl (33.0-37.0); MEAN PLATELET VOLUME 10.5 fl (9.6-12.3); PLATELET COUNT AUTOMATED 337 10*3/uL (130-400); RED BLOOD COUNT 3.18 10*6/uL (4.10-5.10); RED CELL DISTRI WIDTH 13.2 % (0-14.5); WHITE BLOOD COUNT 10.2 10*3/uL (4.8-10.8)
[2019-02-01 06:56] LABS: BUN 2 mg/dl (7-24); CHLORIDE 103 mmol/L (98-107); CREATININE 0.53 mg/dL (0.55-1.02); POTASSIUM 3.2 mmol/L (3.5-5.1); SODIUM 136 mmol/L (136-145)
[2019-02-01 07:53] LABS: ATYPICAL LYMPHS 1 % (0-0); BASOPHILS 1 % (0-1); BURR CELLS FEW; PLATELET SUFFICIENCY NORMAL (NORMAL); POLYCHROMASIA SLIGHT; TOTAL CELLS COUNTED 100 #CELLS; TOXIC GRANULATION SLIGHT
[2019-02-01 07:54] LABS: ROULEAUX SLIGHT
[2019-02-01 08:00] VITALS: BP 106/70; BP 112/68
[2019-02-01 12:00] VITALS: BP 107/76
[2019-02-01 16:00] VITALS: BP 106/60
--- NOTE | 2019-02-01 18:53 | NUR ---
MORPHINE GIVEN FOR C/O BILATERAL KNEE PAIN. RATES 10/10 ON PAIN SCALE. WILL MONITOR.
--- NOTE | 2019-02-01 19:45 | NUR ---
PATIENT SITTING UP IN BED AT THIS TIME. AT BEDSIDE. STATES THAT HER KNEES REALLY HURT. PATIENT'S KNEES HAVE PRESENTED WITH SWELLING WITHIN THE LAST FEW DAYS. PATIENT APPEARS TO BE IN BETTER SPIRITS THAN SHE HAD BEEN THE PREVIOUS NIGHT. PATIENT DENIES ANY OTHER COMPLAINTS AT THIS TIME. WILL NOTIFY DOCTOR OF KNEE PAIN AND DISCUSS OPTIONS. NO S/S OF DISTRESS. CALL LIGHT WITHIN REACH.
--- NOTE | 2019-02-01 19:49 | NUR ---
DR IVORY NOTIFIED OF PATIENT'S COMPLAINTS OF PAIN IN HER KNEES AND INCREASED SWELLING OF KNEES. STATES HE WILL PASS IT ALONG IN THE MORNING AND THEY WILL TAKE A LOOK AT THEM.
[2019-02-01 20:00] VITALS: BP 104/63
--- NOTE | 2019-02-01 23:27 | NUR ---
PATIENT RECEIVED MORPHINE FOR PAIN IN HER BILATERAL KNEES RATED 7/10.
[2019-02-02] VITALS: BP 103/71
[2019-02-02 06:23] LABS: BASO % 0.2 % (0.0-1.0); BUN 1 mg/dl (7-24); CHLORIDE 101 mmol/L (98-107); CREATININE 0.53 mg/dL (0.55-1.02); EOS % 0.4 % (1.0-4.0); HEMATOCRIT 27.6 % (37.0-47.0); HEMOGLOBIN 8.7 g/dl (12.0-16.0); LYMPH # 1.2 10*3/uL (1.3-4.4); LYMPH % 12.5 % (27.0-41.0); MEAN CELL VOLUME 86.3 fl (81.0-99.0); MEAN CORPUSCULAR HGB 27.2 pg (27.0-31.0); MEAN CORPUSCULAR HGB CONC 31.5 g/dl (33.0-37.0); MEAN PLATELET VOLUME 10.3 fl (9.6-12.3); MONO % 10.3 % (3.0-9.0); NEUT # 7.4 10*3/uL (2.3-7.9); NEUT % 74.9 % (47.0-73.0); PLATELET COUNT AUTOMATED 356 10*3/uL (130-400); POTASSIUM 3.2 mmol/L (3.5-5.1); RED CELL DISTRI WIDTH 13.3 % (0-14.5); SODIUM 136 mmol/L (136-145); WHITE BLOOD COUNT 9.9 10*3/uL (4.8-10.8)
--- NOTE | 2019-02-02 07:59 | NUR ---
24 HR chart check completed.
--- NOTE | 2019-02-02 09:00 | NUR ---
case management visits with patient, patient will be going home when able, case management will follow
--- NOTE | 2019-02-02 10:48 | NUR ---
Fatuma QUIÑONES notified of wound care recommendations.
[2019-02-02 12:00] VITALS: BP 93/63
--- NOTE | 2019-02-02 13:12 | NUR ---
PHYSICAL THERAPY PAtient with doctor at this time. Thank you for this referral. Salina Banuelos,PT
--- NOTE | 2019-02-02 13:28 | NUR ---
DR CEJA IN FOR CONSULT AND STATED THAT BUTTOCK WOUNDS DO NOT NEED ANY DEBRIDEMENT AND BELIEVES PT MAY BE SUFFERING FROM SOME TYPE OF AUTOIMMUNE DISEASE.
--- NOTE | 2019-02-02 14:38 | NUR ---
PHYSICAL THERAPY PAtient adamantly refuses PT evalaution at this time. PAtient Refuses to partipate in any standing or out of bed activities until "both my knees are drained." Attempted to educated on the importance of PT and possible using (A) device but patient refuses and reports " I can not use a walker" and points to her wrist. PAtient may bed able to use platform wh walker but not recpetive to any attempts for mobility at this time. Will attempt at a later date when patient more willing and receptive. Thank you for this referral. Salina Banuelos,PT
[2019-02-02 16:00] VITALS: BP 110/63
--- NOTE | 2019-02-02 16:05 | NUR ---
CLARENCE IS DECLINING OCCUPATIONAL THERAPY EVALUATION THIS PM SECONDARY TO PAIN IN HER KNEES. SHE STATES SHE WILL PARTICIPATE WHEN THE FLUID IS DRAINED FROM HER KNEES. WILL CHECK BACK FOR OT EVALUATION. MICHAEL MATUTE OTR/L
[2019-02-02 20:00] VITALS: BP 100/58
--- NOTE | 2019-02-02 22:21 | NUR ---
LAB CALLED QUESTIONING AN ORDER FOR A CRP DRAW THAT WAS ORDERED EARLIER IN THE DAY. PATIENT HAD REFUSED DRAW AT THIS TIME. RN SPOKE WITH PATIENT. PATIENT IS AGREEABLE TO HAVE CRP DRAWN IN AM. ORDER RE-TIMED.
[2019-02-03] VITALS: BP 105/61
--- NOTE | 2019-02-03 00:28 | NUR ---
NOTIFIED OF PATIENT'S ORAL TEMP 100.6. PATIENT IS REFUSING TYLENOL AT THIS TIME. REQUESTING SOMETHING MORE FOR PAIN SHE SAYS IV MORPHINE IS INEFFECTIVE. DISCUSSED PATIENT'S DX OF COLITIS, SWELLING IN KNEES CAUSING PAIN, AND PRESUMED AUTOIMMUNE DISORDER PER I&D. NEW ORDERS TO FOLLOW.
--- NOTE | 2019-02-03 00:53 | NUR ---
IV TORADOL ADMINISTERED PER ONE TIME ORDER FOR C/O PAIN IN R KNEE RATED 8/10. WILL MONITOR EFFECTIVENESS. CALL LIGHT LEFT IN REACH.
--- NOTE | 2019-02-03 06:14 | NUR ---
NOTIFIED OF PATIENT'S REQUEST FOR AN ADVANCED DIET. DISCUSSED EGD/COLO RESULTS. NEW ORDER TO FOLLOW FOR SOFT DIET.
[2019-02-03 08:00] VITALS: BP 100/67
--- NOTE | 2019-02-03 10:05 | NUR ---
MORPHINE GIVEN FOR C/O "ALL OVER PAIN". CALL LIGHT IN REACH.
--- NOTE | 2019-02-03 10:21 | NUR ---
PT REQUESTING MAGIC MOUTHWASH BEFORE MEALS FOR EATING PURPOSES AND STATES THE MORPHINE IS NOT EFEFCTIVE IT ONCE WAS. INFORMED KELLIE MARCIAL OF ALL. NO CHANGES TO PAIN MEDICATIONS BUT ORDERED TO CHANGE MOUTH WASH TO AC INSTEAD OF TID.
--- NOTE | 2019-02-03 10:29 | NUR ---
FRANCISCO IN ORTHO NOTIFIED OF NEW CONSULT FOR . STATES SHE WILL PASS THIS ON TO IS CURRENTLY IN SURGERY.
--- NOTE | 2019-02-03 10:45 | NUR ---
Orthopedic group has been consulted. Meche Cannon OTR/l
--- NOTE | 2019-02-03 10:49 | NUR ---
PER PT, MORPHINE WAS "SOMEWHAT" EFFECTIVE. PAIN RATED 7/10. CALL LIGHT IN REACH.
--- NOTE | 2019-02-03 10:53 | NUR ---
PHYSICAL THERAPY Ortho has been consulted. Salina Banuelos,PT
[2019-02-03 12:00] VITALS: BP 113/78
--- NOTE | 2019-02-03 12:13 | NUR ---
IN TO ASPIRATE RT KNEE AT THIS TIME. CONSENT SIGNED FOR PORCEDURE AND ON CHART.
--- NOTE | 2019-02-03 12:15 | NUR ---
90cc OF CLOUDY YELLOW FLUID REMOVED FROM RT KNEE BY . FLUID SENT TO LAB FOR WORK UP. RESULTS PENDING. PER , DEPENDING ON THE RESULTS OF THE FLUID PT MAY NEED TO GO TO OR FOR FURTHER TREATMENT.
--- NOTE | 2019-02-03 12:32 | NUR ---
MORPHINE GIVEN FOR 10/10 PAIN. CALL LIGHT IN REACH.
--- NOTE | 2019-02-03 13:02 | NUR ---
PER PT, MORPHINE WAS EFFETIVE. PAIN NOW RATED 6/10. CALL LIGHT IN REACH.
[2019-02-03 13:44] LABS: BF LYMPHOCYTES 13 %; BF MONOCYTES 8 %; BF NEUTROPHILS 79 %
[2019-02-03 13:48] LABS: BODY FLUID WBC 5375 /uL
--- NOTE | 2019-02-03 14:34 | NUR ---
PT REFUSING CHEST CTA, EXPLAINED IMOPORTANCE OF TEST. PT STILL REFUSING. KELLIE MARCIAL NOTIFIED.
--- NOTE | 2019-02-03 15:49 | NUR ---
SITTING UP, EATING LUNCH/DINNER. TALKING ABOUT MEDICAL INSURANCE AND HOW HER MAKES TOO MUCH MONEY FOR HER TO BE APPROVED FOR A STATE MEDICAL CARD. IVF GOING. CALL LIGHT IN REACH. MORPHINE GIVEN AT THIS TIME FOR PAIN RATED 10 OF 10. RT NEW DRSG FOLLOWING APIRATION IN TACT. NO SIGNS OF BLEEDING. PT STATES HER RT KNEE FEELS MUCH BETTER AFTER PROCEDURE BUT STILL PAINFUL DUE TO ARTHRITIS.
[2019-02-03 16:00] VITALS: BP 112/66
--- NOTE | 2019-02-03 16:19 | NUR ---
WOUND DRSG TO BUTTOCK CHANGED AT THIS TIME. PT TOLERATED WELL.
--- NOTE | 2019-02-03 16:20 | NUR ---
MORPHINE GIVEN FOR PAIN RATED 10/10 AND WORSE WITH EXERTION. CALL LIGHT IN REACH. ISOLATION MAINTAINED.
--- NOTE | 2019-02-03 16:44 | NUR ---
INFORMED KELLIE MARCIAL THAT PT WAS ASKING WHEN HER LEFT KNEE WILL BE DRAINED. SAID SHE WOULD ORDER A LEFT KNEE XRAY.
--- NOTE | 2019-02-03 16:56 | NUR ---
PT DOWN FOR LEFT KNEE XRAY.
--- NOTE | 2019-02-03 17:49 | NUR ---
PER PT, MORPHINE "KIND OF HELPED." PAIN RATED 7/10. CALL LIGHT IN REACH.
--- NOTE | 2019-02-03 17:52 | NUR ---
PT IS UP TO BEDSIDE. APPLYING SOCKS. HR 150s PER CM. PT DENIES ANY CP.
[2019-02-03 20:00] VITALS: BP 108/62
[2019-02-04] VITALS: BP 108/59
--- NOTE | 2019-02-04 01:12 | NUR ---
PATIENT MEDICATED WITH DILAUDID FOR COMPLAINTS OF PAIN. WILL CONTINUE TO MONITOR. CALL LIGHT IN REACH.
[2019-02-04 07:00] LABS: ALBUMIN 1.5 gm/dl (3.1-4.5); ALKALINE PHOSPHATASE 50 U/L (45-117); BUN 7 mg/dl (7-24); CHLORIDE 103 mmol/L (98-107); CREATININE 0.48 mg/dL (0.55-1.02); POTASSIUM 3.7 mmol/L (3.5-5.1); SGOT/AST 14 IU/L (3-35); SGPT/ALT 12 U/L (12-78); SODIUM 136 mmol/L (136-145); TOTAL PROTEIN 6.4 gm/dL (6.4-8.2)
[2019-02-04 07:19] LABS: HEMATOCRIT 26.6 % (37.0-47.0); HEMOGLOBIN 8.2 g/dl (12.0-16.0); MEAN CELL VOLUME 86.9 fl (81.0-99.0); MEAN CORPUSCULAR HGB 26.8 pg (27.0-31.0); MEAN CORPUSCULAR HGB CONC 30.8 g/dl (33.0-37.0); MEAN PLATELET VOLUME 10.3 fl (9.6-12.3); PLATELET COUNT AUTOMATED 346 10*3/uL (130-400); RED BLOOD COUNT 3.06 10*6/uL (4.10-5.10); RED CELL DISTRI WIDTH 13.8 % (0-14.5); WHITE BLOOD COUNT 9.4 10*3/uL (4.8-10.8)
[2019-02-04 08:02] LABS: ATYPICAL LYMPHS 1 % (0-0); PLATELET SUFFICIENCY NORMAL (NORMAL); POLYCHROMASIA SLIGHT; TOTAL CELLS COUNTED 100 #CELLS; TOXIC GRANULATION MODERATE
--- NOTE | 2019-02-04 09:39 | NUR ---
PT REFUSED HER ORAL MEDICATIONS THIS AM. STATED THAT HER MOUTH HAS BECOME TO SORE TO EVEN SWALLOW. I OFFERED HER THE [place]STATIN TO SWISH WITH BUT SHE EVEN REFUSED THAT STATED PUTTING ANYTHING IN HER MOUTH IS PAINFUL.
--- NOTE | 2019-02-04 10:54 | NUR ---
I EXPLAINED TO PT THAT SHE HAS BEEN EXCEPTED TO [facility] UNDER DR MURRAY. PT IS AGITATED ABOUT NOT BEING ABLE TO GO TO [facility] DUE TO INSURANCE ISSUES. PT REFUSED DISCHARGE PICTURES OF HER WOUNDS JUST SHAKING HER HEAD NO WHEN I ASKED IF I COULD TAKE PICTURES AND NOT ANSWERING MY QUESTIONS.
[2019-02-04] MEDS ORDERED: FEROSUL325 MG PO (11:03)
[2019-02-04] MEDS ORDERED: Nystatin 100,000 UNI PO (11:03)
[2019-02-04] MEDS ORDERED: FLUCONAZOLE100 MG PO (11:03)
[2019-02-04] MEDS ORDERED: HYDROMORPH0.5 MG/0.5 IV (11:03)
--- NOTE | 2019-02-04 11:39 | NUR ---
case management received a message that patient would be transferred to [facility] in [place], [place] and would require an insurance authorization prior to going. called patient's insurance, spoke to Milton, insurance precert obtained, called [facility], spoke to Nickolas, reference number is [id number], with fax number is [phone]. per Nickolas, she does not have an available bed at this time, but will notify the nursing floor when a bed is available
[2019-02-04 12:00] VITALS: BP 91/62
--- NOTE | 2019-02-04 14:09 | NUR ---
SPOKE WITH ONE CALL AT THIS TIME AND THEY ARE STILL WAITING ON A BED ROOM ASSIGNMENT AT [facility] FOR THIS PT. PT AND AWARE.
--- NOTE | 2019-02-04 14:32 | NUR ---
Awaiting transfer to [facility]. Waiting on a bed. Meche Cannon OTR/L
--- NOTE | 2019-02-04 15:58 | NUR ---
REPORT GIVEN TO LARISSA FOUNTAIN AT [facility] [phone]. PT GOING TO ROOM E-824-1.
[2019-02-04 16:00] VITALS: BP 104/61
--- NOTE | 2019-02-04 16:53 | NUR ---
[facility] HERE TO TRANSPORT PT TO [facility]
== END 2019-02-04 16:53 | disposition short-term general hospital (02) | DRG 871 ==
LOC: ED 16:26 → EDHOLD 19:53 → 4E 19:53
PROVIDERS: Family Medicine; Internal Medicine; Nurse Practitioner Family; Orthopaedic Surgery; Registered Nurse; Student in an Organized Health Care Education/Training Program; Surgery; ADMIT Internal Medicine
PROC: 0DB78ZX Excision of Stomach, Pylorus, Via Natural or Artificial Opening Endoscopic, Diagnostic (ICD-10-PCS; principal; 2019-01-30)
PROC: 0DBE8ZX Excision of Large Intestine, Via Natural or Artificial Opening Endoscopic, Diagnostic (ICD-10-PCS; principal; 2019-01-30)
PROC: 0S9C3ZZ Drainage of Right Knee Joint, Percutaneous Approach (ICD-10-PCS; 2019-02-03)
DX: A41.9 Sepsis, unspecified organism (principal); E43 Unspecified severe protein-calorie malnutrition; K29.71 Gastritis, unspecified, with bleeding; E87.1 Hypo-osmolality and hyponatremia; K63.3 Ulcer of intestine; B37.0 Candidal stomatitis; B37.81 Candidal esophagitis; M00.9 Pyogenic arthritis, unspecified; M19.071 Primary osteoarthritis, right ankle and foot; R79.82 Elevated C-reactive protein (CRP); R70.0 Elevated erythrocyte sedimentation rate; K52.9 Noninfective gastroenteritis and colitis, unspecified; M25.462 Effusion, left knee; G89.29 Other chronic pain; D64.9 Anemia, unspecified; B27.90 Infectious mononucleosis, unspecified without complication; M25.461 Effusion, right knee; M17.10 Unilateral primary osteoarthritis, unspecified knee; E87.6 Hypokalemia; B35.9 Dermatophytosis, unspecified; K62.89 Other specified diseases of anus and rectum; E83.39 Other disorders of phosphorus metabolism; K44.9 Diaphragmatic hernia without obstruction or gangrene; Z83.3 Family history of diabetes mellitus; Z82.49 Family history of ischemic heart disease and other diseases of the circulatory system; Z80.8 Family history of malignant neoplasm of other organs or systems; Z87.440 Personal history of urinary (tract) infections; Z68.26 Body mass index [BMI] 26.0-26.9, adult

== ENCOUNTER 2021-05-07 08:33 | Emergency (ER) | payer SELFPAY ==
[~2021-05-07] VITALS: Ht 167.6 cm; Wt 74.8 kg
[~2021-05-07 08:33] MED LIST changes: +FEROSUL325 MG PO; +FLUCONAZOLE100 MG PO; +HYDROMORPH0.5 MG/0.5 IV; +Nystatin 100,000 UNI PO
[2021-05-07 11:14] LABS: BASO # 0.1 10*3/uL (0.0-0.1); BASO % 0.4 % (0.0-1.0); EOS # 0.2 10*3/uL (0.0-0.4); EOS % 1.3 % (1.0-4.0); LYMPH # 2.4 10*3/uL (1.3-4.4); LYMPH % 19.9 % (27.0-41.0); MEAN CELL VOLUME 88.8 fl (81.0-99.0); MEAN CORPUSCULAR HGB 28.5 pg (27.0-31.0); MEAN CORPUSCULAR HGB CONC 32.1 g/dl (33.0-37.0); MEAN PLATELET VOLUME 10.5 fl (9.6-12.3); MONO # 0.7 10*3/uL (0.1-1.0); MONO % 5.5 % (3.0-9.0); NEUT # 8.6 10*3/uL (2.3-7.9); NEUT % 72.6 % (47.0-73.0); PLATELET COUNT AUTOMATED 366 10*3/uL (130-400); RED BLOOD COUNT 4.28 10*6/uL (4.10-5.10); RED CELL DISTRI WIDTH 12.9 % (0-14.5); WHITE BLOOD COUNT 11.9 10*3/uL (4.8-10.8)
[2021-05-07 11:36] LABS: ALBUMIN 3.7 gm/dl (3.1-4.5); ALKALINE PHOSPHATASE 87 U/L (45-117); BUN 9 mg/dl (7-24); CHLORIDE 109 mmol/L (98-107); CREATININE 0.61 mg/dL (0.55-1.02); POTASSIUM 3.3 mmol/L (3.5-5.1); SGOT/AST 6 IU/L (3-35); SGPT/ALT 15 U/L (12-78); SODIUM 137 mmol/L (136-145); TOTAL PROTEIN 8.5 gm/dL (6.4-8.2)
[2021-05-07] MEDS ORDERED: ZOFRAN4 MG PO (11:47)
[2021-05-07] MEDS ORDERED: IMODIUM A-D2 M2 PO (11:47)
[2021-05-07] MEDS ORDERED: PREDNISONE50 MG PO ×2 (11:47)
== END 2021-05-07 11:50 | disposition home or self-care (01) ==
LOC: ED 08:33
PROVIDERS: Student in an Organized Health Care Education/Training Program
DX: K50.90 Crohn's disease, unspecified, without complications (principal); R11.2 Nausea with vomiting, unspecified; F17.200 Nicotine dependence, unspecified, uncomplicated; Z79.899 Other long term (current) drug therapy; Z98.890 Other specified postprocedural states

== ENCOUNTER 2021-05-14 14:08 | Emergency (ER) | payer SELFPAY ==
[~2021-05-14 14:08] MED LIST changes: +IMODIUM A-D2 M2 PO; +PREDNISONE50 MG PO; +ZOFRAN4 MG PO
== END 2021-05-14 15:30 | disposition home or self-care (01) ==
LOC: ED 14:08
DX: H20.9 Unspecified iridocyclitis (principal); Z79.899 Other long term (current) drug therapy; Z98.890 Other specified postprocedural states

== ENCOUNTER 2021-06-23 04:30 | Inpatient (IN) | payer SELFPAY ==
[~2021-06-23] VITALS: Ht 172.7 cm; Wt 80.5 kg
[2021-06-23] VITALS (8 sets, daily range): BP systolic 119–169; BP diastolic 77–104
[2021-06-23 06:36] LABS: HEMATOCRIT 29.9 % (37.0-47.0); MEAN CELL VOLUME 82.8 fl (81.0-99.0); MEAN CORPUSCULAR HGB 26.3 pg (27.0-31.0); MEAN CORPUSCULAR HGB CONC 31.8 g/dl (33.0-37.0); MEAN PLATELET VOLUME 9.7 fl (9.6-12.3); PLATELET COUNT AUTOMATED 451 10*3/uL (130-400); RED BLOOD COUNT 3.61 10*6/uL (4.10-5.10); RED CELL DISTRI WIDTH 15.5 % (0-14.5); WHITE BLOOD COUNT 18.8 10*3/uL (4.8-10.8)
[2021-06-23 06:56] LABS: ALBUMIN 2.2 gm/dl (3.1-4.5); ALKALINE PHOSPHATASE 192 U/L (45-117); BUN 7 mg/dl (7-24); CHLORIDE 100 mmol/L (98-107); CREATININE 0.56 mg/dL (0.55-1.02); SGOT/AST 17 IU/L (3-35); SGPT/ALT 65 U/L (12-78); SODIUM 134 mmol/L (136-145); TOTAL PROTEIN 7.9 gm/dL (6.4-8.2)
[2021-06-23 07:07] LABS: TOTAL CELLS COUNTED 100 #CELLS
[2021-06-23 07:11] LABS: PLATELET SUFFICIENCY HIGH (NORMAL)
[2021-06-23 07:40] LABS: B-hCG (QUALITATIVE) NEGATIVE (NEGATIVE); CPK 12 U/L (26-192); LIPASE 51 U/L (73-393)
[2021-06-23 07:42] LABS: TROPONIN I < 0.015 ng/ml (<0.045)
[2021-06-23 08:20] LABS: BILIRUBIN Negative (Negative); BLOOD Trace-Lysed (Negative); CLARITY Clear (Clear); COLOR Yellow (Yellow); GLUCOSE Negative (Negative); KETONE 1+ (Negative); LEUKO ESTERASE Trace (Negative); NITRITE Negative (Negative); SPECIFIC GRAVITY <= 1.005 (1.001-1.030); UROBILINOGEN 0.2 E.U./dl (0.0-1.0)
[2021-06-23 08:27] LABS: URINE AMPHETAMINES < 1000 (1000ng/ml); URINE BARBITURATES < 200 (200ng/ml); URINE BENZODIAZEPINES < 200 (200ng/ml); URINE CANNABINOIDS (THC) > 50 (50ng/ml); URINE COCAINE < 300 (300ng/ml); URINE METHADONE < 300 (300ng/ml); URINE OPIATES < 300 (300ng/ml); URINE PHENCYCLIDINE < 25 (25ng/ml)
[2021-06-23 08:29] LABS: BACTERIA TRACE; RBC 0-2 rbc/hpf (0-2)
[2021-06-24 07:00] LABS: HEMATOCRIT 30.1 % (37.0-47.0); MEAN CELL VOLUME 83.4 fl (81.0-99.0); MEAN CORPUSCULAR HGB 26.6 pg (27.0-31.0); MEAN CORPUSCULAR HGB CONC 31.9 g/dl (33.0-37.0); MEAN PLATELET VOLUME 9.5 fl (9.6-12.3); PLATELET COUNT AUTOMATED 506 10*3/uL (130-400); RED BLOOD COUNT 3.61 10*6/uL (4.10-5.10); RED CELL DISTRI WIDTH 15.6 % (0-14.5); WHITE BLOOD COUNT 19.5 10*3/uL (4.8-10.8)
[2021-06-24 07:33] LABS: CHLORIDE 100 mmol/L (98-107); POTASSIUM 3.3 mmol/L (3.5-5.1); SODIUM 136 mmol/L (136-145)
[2021-06-24 07:47] LABS: ALBUMIN 2.3 gm/dl (3.1-4.5); ALKALINE PHOSPHATASE 178 U/L (45-117); BUN 5 mg/dl (7-24); CHOLESTEROL 203 mg/dL (<200); LDL CHOLESTEROL 136 mg/dL (9-159); SGOT/AST 11 IU/L (3-35); SGPT/ALT 48 U/L (12-78); TOTAL PROTEIN 8.3 gm/dL (6.4-8.2); TRIGLYCERIDES 112 mg/dl (<150)
[2021-06-24 08:00] VITALS: BP 147/98
[2021-06-24 08:02] LABS: PLATELET SUFFICIENCY HIGH (NORMAL); TOTAL CELLS COUNTED 100 #CELLS
[2021-06-24 08:41] LABS: VITAMIN D, 25-HYDROXY 24.9 ng/mL (30-100)
[2021-06-24 12:00] VITALS: BP 137/98
[2021-06-24 16:00] VITALS: BP 125/87
[2021-06-24 20:00] VITALS: BP 132/89
[2021-06-25] VITALS: BP 136/93
[2021-06-25 07:02] LABS: BASO % 0.1 % (0.0-1.0); HEMATOCRIT 26.7 % (37.0-47.0); LYMPH # 1.7 10*3/uL (1.3-4.4); LYMPH % 14.3 % (27.0-41.0); MEAN CELL VOLUME 82.7 fl (81.0-99.0); MEAN CORPUSCULAR HGB CONC 31.5 g/dl (33.0-37.0); MEAN PLATELET VOLUME 9.4 fl (9.6-12.3); MONO # 0.6 10*3/uL (0.1-1.0); MONO % 5.1 % (3.0-9.0); NEUT # 9.3 10*3/uL (2.3-7.9); NEUT % 79.2 % (47.0-73.0); PLATELET COUNT AUTOMATED 431 10*3/uL (130-400); RED BLOOD COUNT 3.23 10*6/uL (4.10-5.10); RED CELL DISTRI WIDTH 15.3 % (0-14.5); WHITE BLOOD COUNT 11.7 10*3/uL (4.8-10.8)
[2021-06-25 07:32] LABS: BUN 13 mg/dl (7-24); CHLORIDE 107 mmol/L (98-107); POTASSIUM 3.9 mmol/L (3.5-5.1); SODIUM 139 mmol/L (136-145)
[2021-06-25 08:00] VITALS: BP 124/83
[2021-06-25 12:00] VITALS: BP 137/99
[2021-06-25] MEDS ORDERED: CIPRO500 MG PO (13:34)
[2021-06-25] MEDS ORDERED: FLAGYL500 MG PO (13:34)
[2021-06-25] MEDS ORDERED: ASACOL HD800 M1 PO (13:34)
[2021-06-25] MEDS ORDERED: PREDNISONE10 MG PO (13:34)
== END 2021-06-25 14:44 | disposition home or self-care (01) | DRG 871 ==
LOC: ED 04:30 → EDHOLD 11:37 → 4E 21:54
PROVIDERS: Emergency Medicine; Hospitalist; Social Worker Clinical; ADMIT Emergency Medicine; ATTEND Emergency Medicine
DX: A41.9 Sepsis, unspecified organism (principal); E43 Unspecified severe protein-calorie malnutrition; E87.1 Hypo-osmolality and hyponatremia; K50.911 Crohn's disease, unspecified, with rectal bleeding; K52.9 Noninfective gastroenteritis and colitis, unspecified; D64.9 Anemia, unspecified; E86.0 Dehydration; R65.10 Systemic inflammatory response syndrome (SIRS) of non-infectious origin without acute organ dysfunction; D47.3 Essential (hemorrhagic) thrombocythemia; R73.9 Hyperglycemia, unspecified; E87.6 Hypokalemia; Z79.899 Other long term (current) drug therapy; Z68.26 Body mass index [BMI] 26.0-26.9, adult

== ENCOUNTER 2021-07-19 12:42 | Emergency (ER) | payer SELFPAY ==
[~2021-07-19] VITALS: Ht 172.7 cm; Wt 79.4 kg
[2021-07-19 18:59] LABS: BASO % 0.3 % (0.0-1.0); EOS # 0.1 10*3/uL (0.0-0.4); EOS % 0.5 % (1.0-4.0); HEMATOCRIT 34.7 % (37.0-47.0); LYMPH # 1.9 10*3/uL (1.3-4.4); LYMPH % 16.3 % (27.0-41.0); MEAN CELL VOLUME 92.3 fl (81.0-99.0); MEAN CORPUSCULAR HGB 26.3 pg (27.0-31.0); MEAN CORPUSCULAR HGB CONC 28.5 g/dl (33.0-37.0); MEAN PLATELET VOLUME 9.3 fl (9.6-12.3); MONO # 0.6 10*3/uL (0.1-1.0); MONO % 5.3 % (3.0-9.0); NEUT # 9.2 10*3/uL (2.3-7.9); NEUT % 77.1 % (47.0-73.0); PLATELET COUNT AUTOMATED 520 10*3/uL (130-400); RED BLOOD COUNT 3.76 10*6/uL (4.10-5.10); RED CELL DISTRI WIDTH 18.8 % (0-14.5); WHITE BLOOD COUNT 11.9 10*3/uL (4.8-10.8)
[2021-07-19 19:19] LABS: ALBUMIN 2.7 gm/dl (3.1-4.5); ALKALINE PHOSPHATASE 117 U/L (45-117); BUN 9 mg/dl (7-24); CHLORIDE 106 mmol/L (98-107); CREATININE 0.51 mg/dL (0.55-1.02); SGOT/AST 6 IU/L (3-35); SGPT/ALT 22 U/L (12-78); SODIUM 135 mmol/L (136-145); TOTAL PROTEIN 8.8 gm/dL (6.4-8.2)
== END 2021-07-19 23:36 | disposition home or self-care (01) ==
LOC: ED 12:42
PROVIDERS: Nurse Practitioner
DX: K50.90 Crohn's disease, unspecified, without complications (principal); M19.90 Unspecified osteoarthritis, unspecified site

== ENCOUNTER → 2021-07-19 | Outpatient (CLI) | payer SELFPAY ==
[~2021-07-19] MED LIST changes: +ASACOL HD800 M1 PO; +CIPRO500 MG PO; +FLAGYL500 MG PO; +PREDNISONE10 MG PO
== END | disposition home or self-care (01) ==
LOC: RESCLI 00:23
PROVIDERS: ATTEND Student in an Organized Health Care Education/Training Program
DX: K50.90 Crohn's disease, unspecified, without complications (principal); R11.2 Nausea with vomiting, unspecified; Z79.899 Other long term (current) drug therapy

== ENCOUNTER → 2022-01-10 | Outpatient (CLI) | payer BC ==
[2022-01-10 11:27] LABS: BASO % 0.6 % (0.0-1.0); EOS # 0.2 10*3/uL (0.0-0.4); EOS % 2.2 % (1.0-4.0); HEMATOCRIT 36.5 % (37.0-47.0); LYMPH # 2.1 10*3/uL (1.3-4.4); LYMPH % 29.3 % (27.0-41.0); MEAN CELL VOLUME 83.5 fl (81.0-99.0); MEAN CORPUSCULAR HGB 25.6 pg (27.0-31.0); MEAN CORPUSCULAR HGB CONC 30.7 g/dl (33.0-37.0); MEAN PLATELET VOLUME 10.3 fl (9.6-12.3); MONO # 0.4 10*3/uL (0.1-1.0); MONO % 5.5 % (3.0-9.0); NEUT # 4.5 10*3/uL (2.3-7.9); NEUT % 62.3 % (47.0-73.0); PLATELET COUNT AUTOMATED 494 10*3/uL (130-400); RED BLOOD COUNT 4.37 10*6/uL (4.10-5.10); RED CELL DISTRI WIDTH 16.6 % (0-14.5); WHITE BLOOD COUNT 7.2 10*3/uL (4.8-10.8)
[2022-01-10 11:44] LABS: ALKALINE PHOSPHATASE 70 U/L (45-117); BUN 9 mg/dl (7-24); CHLORIDE 104 mmol/L (98-107); CREATININE 0.61 mg/dL (0.55-1.02); POTASSIUM 3.4 mmol/L (3.5-5.1); SGOT/AST 12 IU/L (3-35); SGPT/ALT 12 U/L (12-78); SODIUM 139 mmol/L (136-145); TOTAL PROTEIN 9.1 gm/dL (6.4-8.2)
[2022-01-11 08:06] LABS: HEPATITIS B SURFACE AB Non Reactive (.); HEPATITIS B SURFACE AG Negative (Negative); HEPATITIS Be ANTIGEN Negative (Negative)
[2022-01-12 17:04] LABS: TB1 Ag VALUE 0.16 IU/mL (.)
== END | disposition home or self-care (01) ==
LOC: LAB 10:50
PROVIDERS: ATTEND Internal Medicine Gastroenterology
DX: K62.5 Hemorrhage of anus and rectum (principal); K58.0 Irritable bowel syndrome with diarrhea

== ENCOUNTER → 2023-05-13 | Outpatient (CLI) | payer BC ==
[2023-05-13 12:55] LABS: BASO # 0.1 10*3/uL (0.0-0.1); BASO % 0.8 % (0.0-1.0); EOS # 0.2 10*3/uL (0.0-0.4); EOS % 2.4 % (1.0-4.0); LYMPH # 2.6 10*3/uL (1.3-4.4); LYMPH % 41.4 % (27.0-41.0); MEAN CELL VOLUME 87.3 fl (81.0-99.0); MEAN CORPUSCULAR HGB 29.4 pg (27.0-31.0); MEAN CORPUSCULAR HGB CONC 33.6 g/dl (33.0-37.0); MEAN PLATELET VOLUME 10.9 fl (9.6-12.3); MONO # 0.4 10*3/uL (0.1-1.0); MONO % 6.1 % (3.0-9.0); NEUT # 3.1 10*3/uL (2.3-7.9); NEUT % 49.1 % (47.0-73.0); PLATELET COUNT AUTOMATED 340 10*3/uL (130-400); RED BLOOD COUNT 5.04 10*6/uL (4.10-5.10); WHITE BLOOD COUNT 6.4 10*3/uL (4.8-10.8)
[2023-05-13 13:18] LABS: ALKALINE PHOSPHATASE 65 U/L (46-116); BUN 8 mg/dl (9-23); CHLORIDE 106 mmol/L (98-107); POTASSIUM 3.5 mmol/L (3.4-5.1); SGPT/ALT 10 U/L (10-49); TOTAL PROTEIN 8.2 gm/dL (6.0-8.0)
[2023-05-14 07:17] LABS: HEPATITIS B SURFACE AB Non Reactive (.)
[2023-05-15 08:14] LABS: TB1 Ag VALUE 0.38 IU/mL (.)
== END | disposition home or self-care (01) ==
LOC: LAB 12:19
PROVIDERS: ATTEND Nurse Practitioner Family
DX: K50.90 Crohn's disease, unspecified, without complications (principal); M19.90 Unspecified osteoarthritis, unspecified site; R53.83 Other fatigue; R11.0 Nausea; R10.9 Unspecified abdominal pain; K52.89 Other specified noninfective gastroenteritis and colitis; M41.9 Scoliosis, unspecified

== ENCOUNTER 2023-12-01 08:33 | Emergency (ER) | payer OTHER ==
[~2023-12-01] VITALS: Ht 172.7 cm; Wt 79.4 kg
[2023-12-01 09:03] LABS: BASO # 0.1 10*3/uL (0.0-0.1); BASO % 0.7 % (0.0-1.0); EOS # 0.2 10*3/uL (0.0-0.4); EOS % 2.2 % (1.0-4.0); HEMATOCRIT 40.1 % (37.0-47.0); LYMPH # 3.1 10*3/uL (1.3-4.4); LYMPH % 34.8 % (27.0-41.0); MEAN CELL VOLUME 88.5 fl (81.0-99.0); MEAN CORPUSCULAR HGB 28.5 pg (27.0-31.0); MEAN CORPUSCULAR HGB CONC 32.2 g/dl (33.0-37.0); MEAN PLATELET VOLUME 10.2 fl (9.6-12.3); MONO # 0.7 10*3/uL (0.1-1.0); MONO % 7.6 % (3.0-9.0); NEUT # 4.8 10*3/uL (2.3-7.9); NEUT % 54.4 % (47.0-73.0); PLATELET COUNT AUTOMATED 331 10*3/uL (130-400); RED BLOOD COUNT 4.53 10*6/uL (4.10-5.10); RED CELL DISTRI WIDTH 14.1 % (0-14.5); WHITE BLOOD COUNT 8.9 10*3/uL (4.8-10.8)
[2023-12-01 09:25] LABS: ALKALINE PHOSPHATASE 61 U/L (46-116); BUN 13 mg/dl (9-23); CHLORIDE 104 mmol/L (98-107); LIPASE 91 U/L (12-53); POTASSIUM 3.8 mmol/L (3.4-5.1); SGPT/ALT 14 U/L (5-49); TOTAL PROTEIN 8.1 gm/dL (6.0-8.0)
[2023-12-01 09:27] LABS: ETHYL ALCOHOL < 3.0 mg/dl (<3)
== END 2023-12-01 11:46 | disposition home or self-care (01) ==
LOC: ED 08:33
PROVIDERS: Internal Medicine
DX: R07.89 Other chest pain (principal); Z79.2 Long term (current) use of antibiotics; Z79.899 Other long term (current) drug therapy; Z98.890 Other specified postprocedural states

== ENCOUNTER → 2024-02-05 | Outpatient (CLI) | payer OTHER ==
[2024-02-05 11:43] LABS: BASO % 0.5 % (0.0-1.0); EOS # 0.1 10*3/uL (0.0-0.4); EOS % 1.6 % (1.0-4.0); HEMATOCRIT 32.9 % (37.0-47.0); LYMPH # 1.7 10*3/uL (1.3-4.4); LYMPH % 27.2 % (27.0-41.0); MEAN CELL VOLUME 87.7 fl (81.0-99.0); MEAN CORPUSCULAR HGB 27.5 pg (27.0-31.0); MEAN CORPUSCULAR HGB CONC 31.3 g/dl (33.0-37.0); MEAN PLATELET VOLUME 9.5 fl (9.6-12.3); MONO # 0.4 10*3/uL (0.1-1.0); MONO % 6.6 % (3.0-9.0); NEUT # 4.1 10*3/uL (2.3-7.9); NEUT % 63.9 % (47.0-73.0); PLATELET COUNT AUTOMATED 390 10*3/uL (130-400); RED BLOOD COUNT 3.75 10*6/uL (4.10-5.10); RED CELL DISTRI WIDTH 13.4 % (0-14.5); WHITE BLOOD COUNT 6.3 10*3/uL (4.8-10.8)
[2024-02-06 15:07] LABS: ANGIOTENSIN-CONVERTING ENZYME 31 U/L (14-82)
[2024-02-07 16:08] LABS: TB1 Ag VALUE 0.11 IU/mL (.)
== END | disposition home or self-care (01) ==
LOC: LAB 10:49
PROVIDERS: ATTEND Internal Medicine
DX: H20.13 Chronic iridocyclitis, bilateral (principal); K92.1 Melena; R91.1 Solitary pulmonary nodule

== ENCOUNTER → 2024-02-17 | Outpatient (CLI) | payer OTHER | LOC: LAB 14:25 | PROVIDERS: ATTEND Internal Medicine | DX: H20.13 Chronic iridocyclitis, bilateral (principal); K92.1 Melena ==

== ENCOUNTER → 2024-12-22 | Outpatient (CLI) | payer OTHER ==
[2024-12-22 13:28] LABS: BASO # 0.1 10*3/uL (0.0-0.1); BASO % 0.6 % (0.0-1.0); EOS # 0.1 10*3/uL (0.0-0.4); EOS % 1.7 % (1.0-4.0); HEMATOCRIT 39.1 % (37.0-47.0); MEAN CELL VOLUME 86.7 fl (81.0-99.0); MEAN CORPUSCULAR HGB 27.7 pg (27.0-31.0); MONO # 0.4 10*3/uL (0.1-1.0); MONO % 4.6 % (3.0-9.0); NEUT # 5.2 10*3/uL (2.3-7.9); NEUT % 66.1 % (47.0-73.0); PLATELET COUNT AUTOMATED 352 10*3/uL (130-400); RED BLOOD COUNT 4.51 10*6/uL (4.10-5.10); RED CELL DISTRI WIDTH 13.3 % (0-14.5); WHITE BLOOD COUNT 7.9 10*3/uL (4.8-10.8)
[2024-12-22 13:59] LABS: ALKALINE PHOSPHATASE 67 U/L (46-116); BUN 11 mg/dl (9-23); CHLORIDE 107 mmol/L (98-107); POTASSIUM 3.8 mmol/L (3.4-5.1); SGPT/ALT 8 U/L (5-49); TOTAL PROTEIN 7.5 gm/dL (6.0-8.0)
[2024-12-23 07:06] LABS: HEP B SURFACE Ab, Qual Non Reactive (.)
== END | disposition home or self-care (01) ==
LOC: LAB 12:30
PROVIDERS: ATTEND Internal Medicine
DX: R10.9 Unspecified abdominal pain (principal); K50.90 Crohn's disease, unspecified, without complications; K52.9 Noninfective gastroenteritis and colitis, unspecified

== ENCOUNTER → 2025-10-18 | Outpatient (CLI) | payer OTHER ==
[2025-10-18 11:33] LABS: BASO # 0.1 10*3/uL (0.0-0.1); BASO % 0.6 % (0.0-1.0); EOS # 0.2 10*3/uL (0.0-0.4); EOS % 2.4 % (1.0-4.0); MEAN CELL VOLUME 88.4 fl (81.0-99.0); MEAN CORPUSCULAR HGB 28.8 pg (27.0-31.0); MEAN PLATELET VOLUME 10.9 fl (9.6-12.3); MONO # 0.5 10*3/uL (0.1-1.0); MONO % 6.2 % (3.0-9.0); NEUT # 5.0 10*3/uL (2.3-7.9); NEUT % 62.5 % (47.0-73.0); NUCLEATED RED BLOOD CELL 0.0 % (0.0-0.0); NUCLEATED RED BLOOD CELL 0.0 10*3/uL (0.0-0.0); PLATELET COUNT AUTOMATED 337 10*3/uL (130-400); RED CELL DISTRI WIDTH 13.5 % (0-14.5)
[2025-10-18 11:57] LABS: BUN 12 mg/dl (9-23); SGPT/ALT 11 U/L (5-49)
== END | disposition home or self-care (01) ==
LOC: LAB 10:47
PROVIDERS: ATTEND Internal Medicine
DX: K59.00 Constipation, unspecified (principal); R10.9 Unspecified abdominal pain; K52.9 Noninfective gastroenteritis and colitis, unspecified; R11.0 Nausea